=== PATIENT | female | born 1960 | race Caucasian/White ===

== ENCOUNTER 2022-04-04 18:33 | Observation (INO) | payer OTHER ==
[2022-04-04 21:23] LABS: BASO % 0.9 % (0-2.0); HEMATOCRIT 23.2 % (32.4-45.2); LYMPH % 56.2 % (8-40); MCHC 29.8 g/dl (32.0-36.0); MEAN CELL VOLUME 58.7 fl (80-96); MEAN PLT VOLUME 8.2 fl (7.5-11.1); MONO % 6.8 % (3.8-10.2); NEUT % 34.1 % (42.8-82.8); PLATELET COUNT 342 10^3/uL (134-434); RBC 3.96 M/mm3 (3.60-5.2); RDW 20.2 % (11.6-15.6); WHITE BLOOD COUNT 5.6 K/mm3 (4.0-10.0)
[2022-04-04 21:29] LABS: MCH 17.5 pg (25.7-33.7)
[2022-04-04 21:31] LABS: INR 1.18 (0.83-1.09); PROTHROMBIN TIME (PATIENT) 13.6 SEC (9.7-13.0)
[2022-04-04 21:32] LABS: HEMOGLOBIN 6.9 GM/dL (10.7-15.3)
[2022-04-04 21:34] LABS: ACTIVATED PTT 31.7 SECONDS (25.2-36.5)
[2022-04-04 21:46] LABS: CHLORIDE 107 mmol/L (98-107); SODIUM 140 mmol/L (136-145)
[2022-04-04 21:48] LABS: CALCIUM 8.4 mg/dL (8.5-10.1); GLUCOSE,RANDOM 92 mg/dL (74-106)
[2022-04-04 21:49] LABS: ALBUMIN 3.4 g/dl (3.4-5.0); ANION GAP 7 MMOL/L (8-16); BLOOD UREA NITROGEN 12.3 mg/dL (7-18); CO2 26 mmol/L (21-32)
[2022-04-04 21:51] LABS: ANISOCYTOSIS 2+; MACROCYTOSIS 0; SGOT/AST 24 U/L (15-37); TARGET CELLS 2+; TEAR DROP CELLS 1+
[2022-04-04 21:52] LABS: CREATININE 0.9 mg/dL (0.55-1.3); SGPT/ALT 27 U/L (13-61)
[2022-04-04 21:54] LABS: BILIRUBIN,TOTAL 0.2 mg/dL (0.2-1); TOT PROT 6.8 g/dl (6.4-8.2)
[2022-04-04 21:55] LABS: ALK PHOS 75 U/L (45-117)
[2022-04-05 07:14] VITALS: RESP 20; BMI 30.9
[2022-04-05] MEDS ORDERED: ENOXAPARIN NA (PORCINE) 40 MG/0.4 ML DISP.SYRIN SQ SCH (10:00)
[2022-04-05 11:12] LABS: HEMATOCRIT 26.8 % (32.4-45.2); HEMOGLOBIN 8.2 GM/dL (10.7-15.3); MCHC 30.5 g/dl (32.0-36.0); MEAN CELL VOLUME 62.2 fl (80-96); MEAN PLT VOLUME 8.4 fl (7.5-11.1); PLATELET COUNT 319 10^3/uL (134-434); RDW 23.1 % (11.6-15.6); WHITE BLOOD COUNT 5.4 K/mm3 (4.0-10.0)
[2022-04-05 11:37] LABS: ANISOCYTOSIS 2+; MACROCYTOSIS 0
[2022-04-05 11:41] LABS: BLOOD UREA NITROGEN 8.6 mg/dL (7-18); CALCIUM 8.2 mg/dL (8.5-10.1); MAGNESIUM 2.1 mg/dL (1.8-2.4)
[2022-04-05 11:43] LABS: CREATININE 0.7 mg/dL (0.55-1.3)
[2022-04-05 11:45] LABS: TOT PROT 6.1 g/dl (6.4-8.2)
[2022-04-05 11:47] LABS: PHOSPHOROUS 2.9 mg/dL (2.5-4.9)
[2022-04-05 11:49] LABS: BILIRUBIN,TOTAL 0.4 mg/dL (0.2-1)
[2022-04-05 15:52] VITALS: BP 128/67; PULSE 76; TEMP 98.2
[2022-04-05] MEDS ORDERED: IRON SUCROSE INJECTION 100 MG in SODIUM CHLORIDE 95 ML IVPB ONE (16:00)
[2022-04-05 16:01] LABS: PH,URINE 7.5 (5.0-8.0); URINE APPEARANCE CLEAR; URINE BILIRUBIN NEGATIVE (NEGATIVE); URINE COLOR YELLOW; URINE GLUCOSE (UA) NEGATIVE (NEGATIVE); URINE KETONE NEGATIVE (NEGATIVE); URINE LEUK ESTERASE NEGATIVE (NEGATIVE); URINE NITRITE NEGATIVE (NEGATIVE); URINE PROTEIN NEGATIVE (NEGATIVE)
== END 2022-04-05 18:53 | disposition home or self-care (01) ==
LOC: JER 18:33 → INTOOBSV 20:39 → JERBED 20:39 → J8W 04-05 00:27
PROVIDERS: ADMIT Internal Medicine; ATTEND Internal Medicine
PROC: 30233N1 Transfusion of Nonautologous Red Blood Cells into Peripheral Vein, Percutaneous Approach (ICD-10-PCS; principal; 2022-04-04)
PROC: 3E033GC Introduction of Other Therapeutic Substance into Peripheral Vein, Percutaneous Approach (ICD-10-PCS; 2022-04-04)
DX: N93.9 Abnormal uterine and vaginal bleeding, unspecified (principal); D64.9 Anemia, unspecified; N93.8 Other specified abnormal uterine and vaginal bleeding; E66.01 Morbid (severe) obesity due to excess calories; Z68.30 Body mass index [BMI] 30.0-30.9, adult; K21.9 Gastro-esophageal reflux disease without esophagitis; Z88.0 Allergy status to penicillin
CPT/HCPCS: 36415; 36430; 80053; 81003; 82728; 83540; 83550; 83735; 84100; 84484; 85025; 85610; 85730; 86850; 86900; 86901; 86922; 87086; 93005; 93010; 96365; 99285-25; C9803-CS; G0378; J1756; P9058; U0003; U0005